=== PATIENT | male | born 1960 | race Caucasian/White ===

== ENCOUNTER 2019-09-04 16:30 | Emergency (ER) | payer SELFPAY ==
[2019-09-04] MEDS ORDERED: Lidocaine 1% 10 ML MDV INJECT ONE (17:38)
--- NOTE | 2019-09-04 18:30 | EDM.PDOC ---
ED HPI GENERAL MEDICAL PROBLEM - General Chief Complaint: CPR in Progress Stated Complaint: [facility] Time Seen by Provider: 09/04/19 16:30 Source of Information: Reports: EMS History Limitations: Reports: Other (Patient was pronounced on arrival) - History of Present Illness INITIAL COMMENTS - FREE TEXT/NARRATIVE: 59-year-old male resents to the ED per [place]. 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 This fellow was found lying on the ground for an unknown length of time by coworkers. He was found lying beside his pickup truck. They had an AED on site and coworkers did place this as well as started CPR. Initially the AED advised shock 3 which was provided. After this it displayed no shock advised continue CPR. In time they had summoned the [place] [facility] crew. The paramedics report that he took them at around 22 -30 minutes to reach the site. CPR was continued until their arrival. On arrival patient again had no shock advised. CPR was continued with the Rah device and an IO was started in his right leg. He did receive doses of epinephrine but never recovered any form of a pulse or blood pressure. I was called when they were approximately 15 minutes away from [place] and they indicated that he remained pulseless and in asystole on the monitor. Due to the timeframe involved decision made to discontinue resuscitative efforts over the phone. Patient arrives in the ED and confirmed to be . Time of is 1622 hrs. initially had no identification on [place] took a while to get him registered. I have discussed the case with [facility] Mr Michael Hernandez and he will contact shares department to apparently was on scene to help us identify this patient and then family members to help sort out his past history. On my examination there is no outward signs of trauma. There is no particular no signs of trauma to the head or neck. He has a midline sternotomy incision indicating previous cardiac surgery. No limb trauma or back trauma identified on exam. Patient will be, a software tools engineer's case but it looks like he of natural causes. - Related Data Allergies Allergy/AdvReac Type Severity Reaction Status Date / Time Unable to Assess Allergy Unverified 09/04/19 18:03 Home Meds: Home Meds . [Unable to Verify Home Med List] 09/04/19 [History] Social & Family History - Tobacco Use Smoking Status *Q: Unknown Ever Smoked - Recreational Drug Use Other Recreational Drug Type: unk ED ROS GENERAL - Review of Systems Review Of Systems: Unable To Obtain ED EXAM, CPR - Physical Exam Exam: See Below Limited By: Other (Now stated on arrival) General Appearance: Other (Patient is ) Eye Exam: Bilateral Eye: Other (Pupils are fixed and dilated) Throat/Mouth: Other (He has a endotracheal tube in place with fresh blood in the tube.) Head: Other (There are no outward signs of head or facial trauma.) Neck: Other (Movement of his neck reveals no crepitus or evidence of a fractured neck.) Respiratory Chest: Other (Absence of respiratory movement) Cardiovascular: Other (No heartbeat) GI/Abdominal Exam: Other (Abdomen is soft palpation slightly tympanitic to percussion upper abdomen) Extremities: Other (Mottled) Course - Vital Signs Last Recorded V/S: Last Vital Signs Temp -17.7 C L 09/04/19 16:30 Pulse 0 L 09/04/19 16:30 Resp 0 L 09/04/19 16:30 BP 0/0 L 09/04/19 16:30 Pulse Ox 0 L 09/04/19 16:30 - Orders/Labs/Meds Meds: Medications Discontinued Medications Generic Name Dose Route Start Last Admin Trade Name Ronald PRN Reason Stop Dose Admin Lidocaine HCl 10 ml 09/04/19 17:38 Xylocaine 1% INJECT 09/04/19 17:39 ONETIME ONE - Radiology Interpretation Free Text/Narrative:: 59-year-old male presents to the ED and was pronounced on arrival. 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 Is unclear how long he may have been unresponsive. However his coworkers identified that AED advised shock advised 3 which were provided and after this the AED advised continue CPR only. That he may have been down for only a short period of time before being found by coworkers. Apparently has a history of coronary disease. Paramedics arrived on scene between 22 and 30 minutes after being called from [place] as the patient was located nearly 30 miles south of [place]. CPR was commenced for that timeframe by coworkers and continued with the aid of Rah device. And I0 was placed in his right anterior leg and he was given epinephrine and sodium bicarbonate en route to the hospital with no change in cardiac rhythm i.e. he remained in asystole. After phone discussion with me 15 miles out of [place] decision made to discontinue resuscitative efforts. Patient was pronounced officially in the ED at 1622 hrs. The corner Mr. Michael Hernandez--[facility] has called back and identified that cause of will be marked as natural which I agree with. Appears that the patient likely suffered a cardiac event. There is no outward signs of trauma. The brother of the patient wishes the body to be sent to [place], [place] where apparently other family members are buried. It is unclear which femoral home the body will be released to here in [place] at this time. - Re-Assessments/Exams Free Text/Narrative Re-Assessment/Exam: 09/04/19 19::28 decision has been made that [facility] home will be picking up his body. 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 This is approximately 30 minutes away from [facility]. Coworkers found him unresponsive and performed CPR and AED advised 3 shocks which were provided. After this it advised Cipro you are only. Apparently CPR was continued by coworkers until paramedics arrived. They identified and no shock advised as well and continued CPR with the Rah device. Approximately 50 minutes away from [place] the identified he remained asystolic and after discussion performed with the resuscitative efforts were discontinued due to the length of the time since the patient was found unresponsive. Time of pronounced at 1622 hrs. September 04. Case discussed with [facility]. Michael [facility] and he will get back to us as to where the body is to be disposed i.e. which home. Apparently the patient is from [place], [place] but this has to be clarified.
== END 2019-09-04 19:52 | disposition expired ==
LOC: JD.ED 16:30
DX: I46.9 Cardiac arrest, cause unspecified (principal)
CPT/HCPCS: 99284